=== PATIENT | male | born 1980 | race Caucasian/White ===

== ENCOUNTER 2022-02-12 11:58 | Emergency (ER) | payer MEDICAID, SELFPAY ==
[2022-02-12 12:10] VITALS: BP 157/105; PULSE 93; RESP 16; TEMP 37.1; O2SAT 99
--- NOTE | 2022-02-12 12:22 | ED.GENADULT ---
HPI - General Adult General Chief complaint: Skin/Abscess/Foreign Body Stated complaint: Skin Sore Time Seen by Provider: 02/12/22 12:22 Source: patient Mode of arrival: ambulatory Limitations: no limitations History of Present Illness HPI narrative: 41-year-old male patient presents to the [facility] with complaints of a skin sore on his head that he has noticed in the back of his head that he complains of that is itching. Patient states is been there for about a week. Also noticed another similar sore to the top of the head. Denies any fevers, body aches or chills. Related Data Allergies Allergy/AdvReac Type Severity Reaction Status Date / Time No Known Allergies Allergy Verified 02/12/22 12:27 Review of Systems Review of Systems: CONSTITUTIONAL: Denies fever, chills, or sweats. EYES: Denies visual changes, redness, or discharge. ENT: Denies rhinorrhea, congestion, sore throat, or otalgia. CARDIOVASCULAR: Denies chest pain, palpitations, or edema. RESPIRATORY: Denies cough or dyspnea. GASTROINTESTINAL: Denies abdominal pain, nausea, vomiting, or diarrhea. GENITOURINARY: Denies dysuria or hematuria. SKIN: Positive rash with itching to head MUSCULOSKELETAL: Denies back pain, joint pain, or myalgia. NEUROLOGIC: Denies headache, numbness, or weakness. PSYCHIATRIC: Denies anxiety or depression. PMFSH Comments At the time of my signature I agree with nursing past medical history, surgical, social, and family history. There is no relevant family history pertinent to the presenting complaint. Exam Narrative: GENERAL: Well-appearing, well-nourished, and in no acute distress. HEAD: Normocephalic, atraumatic. EYES: PERRLA and EOMI. ENT: Nares clear, no rhinorrhea or epistaxis. Mucous membranes moist. NECK: Supple. No lymphadenopathy CHEST: Clear to auscultation. No respiratory distress. HEART: Regular rate and rhythm. No murmur heard. Normal peripheral pulses. ABDOMEN: Soft, nontender, nondistended, normal active bowel sounds. EXTREMITIES: Normal range of motion. No edema. SKIN: Warm, dry, no rash. Colleague has a circular lesion with clearing towards the center noted towards the top of the right head. Also has another lesion on circular noted to the back of the head has some scabbing over and some clearing toward the center. NEURO: No focal deficits. Alert and oriented x3. Course Course Level of Care: Express Care Visit Vital Signs Vital signs: Vital Signs Temperature 37.1 C 02/12/22 12:10 Pulse Rate 93 02/12/22 12:10 Respiratory Rate 16 02/12/22 12:10 Blood Pressure 157/105 H 02/12/22 12:10 Pulse Oximetry 99 02/12/22 12:10 Temperature 37.1 C 02/12/22 12:10 Pulse Rate 93 02/12/22 12:10 Respiratory Rate 16 02/12/22 12:10 Blood Pressure 157/105 H 02/12/22 12:10 Pulse Oximetry 99 02/12/22 12:10 Vital signs reviewed The patient has been informed that they may have pre-hypertension or Hypertension based on a BP reading in the department. I recommend that the patient call the primary care provider listed on their discharge instructions or a physician of their choice this week to arrange follow up for further evaluation of possible pre-hypertension or Hypertension Medical Decision Making Differential Diagnosis Differential Diagnosis: Differential diagnosis: Contact dermatitis, poison micaela, poison sumac, psoriasis, eczema, allergic reaction, drug reaction, scabies, tinea syphilis, lung disease, viral exanthema, pityriasis, erythema multiforme. Notify patient that there is a does appear to be a fungal infection of his scalp. I will discharge him home with an oral antifungal and encouraged him to get some [id number] Selsun Blue to wash his head with. Discussed with patient that if the area continues after the course of treatment he will need to follow-up with his primary doctor. Patient verbalized understanding denies any other questions or concerns at this time. Vital Signs Vital Signs:
== END 2022-02-12 12:34 | disposition home or self-care (01) ==
PROVIDERS: Emergency Provider Nurse Practitioner Family
DX: B35.0 Tinea barbae and tinea capitis (principal)
CPT/HCPCS: 99213; G0463

== ENCOUNTER 2022-06-23 15:23 | Emergency (ER) | payer OTHER, SELFPAY ==
[2022-06-23 15:32] VITALS: BP 172/127; PULSE 101; RESP 20; TEMP 36.7; O2SAT 100
--- NOTE | 2022-06-23 15:34 | ED.SKABFB ---
HPI - Skin/Abscess/Foreign Bdy General Chief complaint: Skin/Abscess/Foreign Body Stated complaint: bumps behind ears/back of neck Time Seen by Provider: 06/23/22 15:34 Source: patient and RN notes reviewed History of Present Illness HPI narrative: Patient is a 41-year-old male who presents the urgent care with complaints of a itchy painful rash behind the right ear and an open sore to the back of the head. Patient states he has a history of a fungal infection in which she was placed on Diflucan from our facility for 8 weeks and improved his infection. Patient states that this occurrence started approximately 2 days ago. Patient states he has been using antifungal cream [id number] and triple antibiotic ointment. Patient denies any history of staph. Denies any fever, nausea or vomiting. No other acute complaints. No acute distress noted. Patient aware of the plan of care. Some parts of this dictation were generated by voice recognition software and may contain typographical and/or grammatical inaccuracies. Related Data Home Medications Medication Instructions Recorded Confirmed bupropion HCl 100 mg tablet 100 mg PO DAILY 06/23/22 06/23/22 Allergies Allergy/AdvReac Type Severity Reaction Status Date / Time No Known Allergies Allergy Verified 06/23/22 15:41 Review of Systems Review of Systems: CONSTITUTIONAL: Denies fever, chills, or sweats. EYES: Denies visual changes, redness, or discharge. ENT: Denies rhinorrhea, congestion, sore throat, or otalgia. CARDIOVASCULAR: Denies chest pain, palpitations, or edema. RESPIRATORY: Denies cough or dyspnea. GASTROINTESTINAL: Denies abdominal pain, nausea, vomiting, or diarrhea. GENITOURINARY: Denies dysuria or hematuria. SKIN: Reports of a sore to the back of the head and behind the right ear MUSCULOSKELETAL: Denies back pain, joint pain, or myalgia. NEUROLOGIC: Denies headache, numbness, or weakness. All other systems reviewed are negative, except as documented in HPI. PMFSH Comments At the time of my signature, I reviewed and agree with the nursing past medical, surgical, social, and family history. There is no relevant family history pertinent to the patient complaint. Exam Narrative: GENERAL: This is a well-nourished, well-developed patient, in no apparent distress. HEAD: normocephalic, atraumatic. EYES: PERRL. Sclera clear/white. Vision is grossly intact. EARS: External ears normal NOSE: External nose normal with no obvious nasal discharge, nares without redness, no rhinorrhea. THROAT: Mucous membranes moist NECK: Neck supple CARDIOVASCULAR: Regular rate and rhythm without murmurs, gallops, or rubs. RESPIRATORY: Clear to auscultation. Breath sounds equal bilaterally. No wheezes, rales, or rhonchi. SKIN: Erythemic scabbed folliculitis 2 x 4 cm to the base of the neck, erythemic draining dermatitis behind the right ear NEURO: awake, alert, and oriented to person, place and time. There were no obvious focal neurologic abnormalities. EXTREMITIES: No clubbing, cyanosis, or edema. Course Course Level of Care: Express Care Visit Vital Signs Vital signs: Vital Signs Temperature 98.1 F 06/23/22 15:32 Pulse Rate 101 H 06/23/22 15:32 Respiratory Rate 20 06/23/22 15:32 Blood Pressure 172/127 H 06/23/22 15:32 Pulse Oximetry 100 06/23/22 15:32 Oxygen Delivery Room Air 06/23/22 15:32 Temperature 98.1 F 06/23/22 15:42 Pulse Rate 101 H 06/23/22 15:42 Respiratory Rate 20 06/23/22 15:42 Blood Pressure 176/105 H 06/23/22 15:42 Pulse Oximetry 100 06/23/22 15:42 Oxygen Delivery Room Air 06/23/22 15:42 Reviewed-patient is informed that they may have pre-hypertension or hypertension based on a blood pressure reading in the department. I recommend the patient call the primary care provider listed on their discharge instructions or a physician of their choice this week to arrange follow-up for further evaluation of possible pre-hypertension
[2022-06-23 15:42] VITALS: BP 172/127; BP 176/105; PULSE 101; RESP 20; TEMP 36.7; O2SAT 100
== END 2022-06-23 16:12 | disposition home or self-care (01) ==
PROVIDERS: Emergency Provider Nurse Practitioner Family; PCP Internal Medicine
DX: L73.9 Follicular disorder, unspecified (principal); F41.9 Anxiety disorder, unspecified; F32.A Depression, unspecified
CPT/HCPCS: 87070; 87205; 99213; G0463